=== PATIENT | female | born 1930 | race Caucasian/White ===

== ENCOUNTER 2017-10-11 03:49 | Emergency (ER) | payer OTHER ==
[~2017-10-11] VITALS: Ht 157.5 cm; Wt 53.3 kg
[~2017-10-11 03:49] MED LIST: ALBUTEROL2.5 MG/3 M IH; ASPIR-LOW81 MG PO; ATORVASTATIN CA80 MG PO; CENTRUM SILVER1 EAC3 PO; CIPRO250 MG PO; CLOPIDOGREL75 MG PO; CREON 241 CAPSULE PO; ENDOCET 5-3251 EACH PO; INCRUSE ELLI62.5 MCG IH; IRON325 MG PO; K-DUR20 MEQ PO; LEVOTHYROXINE88 MCG PO; LOPRESSOR25 MG PO; LORAZEPAM1 MG PO; NORCO 5/3251 TABLET PO; PRAVACHOL10 MG PO; PREDNISONE10 MG PO; PROAIR HFA8.5 GM IH; PROTONIX40 MG PO; SPIRIVA RESPIMAT4 GM IH; SYMBICORT60 INHALAT IH; THEOPHYLLINE400 MG PO; VITAMIN D31000 UNIT PO
[2017-10-11 04:14] LABS: BASOPHIL (%) 0.8 % (0-1); BASOPHIL COUNT 0.1 K/uL (0-0.1); EOSINOPHIL (%) 3.4 % (0-5); EOSINOPHIL COUNT 0.3 K/uL (0-0.3); HEMATOCRIT 40.9 % (36.0-46.0); HEMOGLOBIN 14.4 G/DL (11.9-15.5); IMMATURE GRANULOCYTE (%) 0.5 % (0.0-0.7); LYMPHOCYTE (%) 22.4 % (15-42); LYMPHOCYTE COUNT 1.6 K/uL (1.0-2.8); MCH 34.7 PG (29.0-34.0); MCHC 35.2 G/DL (30.0-36.0); MCV 98.6 FL (83-99); MONOCYTE (%) 7.1 % (3-12); MONOCYTE COUNT 0.5 K/uL (0-0.8); NEUTROPHIL (%) 65.8 % (45-76); NEUTROPHIL COUNT 4.8 K/uL (1.8-6.4); PLATELET COUNT 230 K/uL (156-360); RBC DIS.WIDTH-CV 13.2 % (11.8-14.6); RBC DIS.WIDTH-SD 47.9 % (39-53); RED BLOOD COUNT 4.15 M/uL (3.80-5.20); WHITE BLOOD COUNT 7.3 K/uL (4.1-10.2)
[2017-10-11 04:25] LABS: ALBUMIN 3.9 g/dL (3.2-4.8); CHLORIDE 107 mEq/L (99-109); POTASSIUM 3.6 mEq/L (3.7-5.4); SODIUM 139 mEq/L (136-147)
[2017-10-11 04:26] LABS: MAGNESIUM 1.7 mg/dL (1.3-2.7)
[2017-10-11 04:28] LABS: GLUCOSE 128 mg/dL (70-99); TOTAL PROTEIN 6.8 g/dL (6.4-8.3)
[2017-10-11 04:30] LABS: TOTAL BILIRUBIN 0.6 mg/dL (0.0-1.0)
[2017-10-11 04:31] LABS: ALKALINE PHOSPHATASE 80 IU/L (3-129); CREATININE 0.7 mg/dL (0.6-1.3); GFR ESTIMATE (CALCULATED) > 59 mL/min/
[2017-10-11 04:33] LABS: AST (GOT) 22 IU/L (2-34); UREA NITROGEN (BUN) 17 mg/dL (9-23)
[2017-10-11 04:34] LABS: ALT (GPT) 20 IU/L (3-49); CREATINE KINASE 90 IU/L (1-294); TOTAL CK 90 IU/L (1-294); TROP-I INTERPRETATION NEGATIVE; TROPONIN-I 0.02 ng/mL (0.0-0.30)
[2017-10-11 04:40] LABS: CK-MB 3.4 ng/mL (0.0-4.9); CKMB RELATIVE INDEX 3.8 (0.0-3.9)
[2017-10-11 05:36] LABS: THEOPHYLLINE 8.8 MCG/ML (10-20)
[2017-10-11 08:09] LABS: THYROTROPIN (TSH) 5.5 MIU/L (0.4-5.5)
[2017-10-11] MEDS ORDERED: NORVASC2.5 MG PO (08:39)
[2017-10-11 16:46] VITALS: BP 129/61
== END 2017-10-11 16:48 | disposition short-term general hospital (02) ==
LOC: EME → EDBD 03:49 → EME 03:49
PROVIDERS: Emergency Medicine
DX: I71.2 Thoracic aortic aneurysm, without rupture (principal); I71.01 Dissection of thoracic aorta; I20.0 Unstable angina; R94.31 Abnormal electrocardiogram [ECG] [EKG]; I10 Essential (primary) hypertension; J44.9 Chronic obstructive pulmonary disease, unspecified; E78.5 Hyperlipidemia, unspecified; R73.9 Hyperglycemia, unspecified; E03.9 Hypothyroidism, unspecified; F41.9 Anxiety disorder, unspecified; F17.200 Nicotine dependence, unspecified, uncomplicated; Z82.49 Family history of ischemic heart disease and other diseases of the circulatory system; Z85.038 Personal history of other malignant neoplasm of large intestine; Z98.890 Other specified postprocedural states
CPT/HCPCS: 71045; 71250; 71275; 80053; 80198; 82550; 82553; 83735; 84443; 84484; 85025; 93005; 94640; J2270